=== PATIENT | female | born 1990 | race Caucasian/White ===

== ENCOUNTER 2017-10-22 17:16 | Emergency (ER) | payer MEDICAID ==
[2017-10-22] MEDS ORDERED: IBUPROFEN 400 MG TABLET PO ONE (18:35)
--- NOTE | 2017-10-22 18:40 | Emergency Department Record ---
History of Present Illness - General Chief complaint: Extremity Problem Stated complaint: L ANKLE INJURY Time Seen by Provider: 10/22/17 18:35 Source: Patient Mode of Arrival: Ambulatory Limitations: No limitations - History of Present Illness Initial comments: 26 yo female presents to ED for evaluation of a foot injury that occurred approximately 2.5 hours ago. Patient reports that she "slipped a banana" at home resulting in injury. Patient denies injury proximal to the foot, denies other injury on examination. Patient denies health problems at her baseline. MD Complaint: Extremity pain Onset/Timin -: Hour(s) Location: Left, Foot History of Same: No Severity scale (1-10): 5 Quality: Aching Consistency: Constant Worsens with: Walking, Weight bearing Associated Symptoms: Denies other symptoms - Related Data Allergies Allergy/AdvReac Type Severity Reaction Status Date / Time amoxicillin trihydrate AdvReac DIARRHEA Verified 10/22/17 18:36 [From Augmentin] potassium clavulanate AdvReac DIARRHEA Verified 10/22/17 18:36 [From Augmentin] Travel Screening - Travel/Exposure Within Last 30 Days Have you traveled within the last 30 days?: No - Travel/Exposure Within Last Year Have you traveled outside the [place] in the last year?: No - Additonal Travel Details Have you been exposed to anyone with a communicable illness?: No - Travel Symptoms Symptom Screening: None Review of Systems Constitutional: Denies: Chills, Fever, Malaise, Night sweats Eyes: Denies: Eye discharge, Eye pain ENT: Denies: Congestion, Ear pain, Epistaxis Respiratory: Denies: Cough, Dyspnea Cardiovascular: Denies: Chest pain, Dyspnea on exertion Endocrine: Denies: Fatigue, Heat or cold intolerance Gastrointestinal: Denies: Abdominal pain, Nausea, Vomiting Genitourinary: Denies: Incontinence, Retention Musculoskeletal: Reports: Arthralgia. Denies: Back pain, Gout, Joint swelling Skin: Denies: Bruising, Change in color Neurological: Denies: Abnormal gait, Confusion, Headache, Tingling Psychiatric: Denies: Anxiety Hematological/Lymphatic: Denies: Anemia, Blood Clots Past Medical History - SOCIAL HISTORY Smoking Status: Never smoker Alcohol Use: None Drug Use: None - RESPIRATORY Hx Respiratory Disorders: No - CARDIOVASCULAR Hx Cardio Disorders: No - NEURO Hx Neuro Disorders: No - GI Hx GI Disorders: No - Hx Genitourinary Disorders: No - ENDOCRINE Hx Endocrine Disorders: No - MUSCULOSKELETAL Hx Musculoskeletal Disorders: No - PSYCH Hx Psych Problems: Yes Hx Anxiety: Yes - HEMATOLOGY/ONCOLOGY Hx Hematology/Oncology Disorders: No Family Medical History Any Significant Family History?: Yes Physical Exam - General General Appearance: Alert, Oriented x3, Cooperative, No acute distress Limitations: No limitations - Head Head exam: Atraumatic, Normocephalic, Normal inspection Head exam detail: negative: Abrasion, Contusion, Kingsley's sign, General tenderness, Hematoma, Laceration - Eye Eye exam: Normal appearance. negative: Conjunctival injection, Periorbital swelling, Periorbital tenderness, Scleral icterus - ENT Ear exam: negative: Auricular hematoma, Auricular trauma Nasal Exam: negative: Active bleeding, Discharge, Dried blood, Foreign body Mouth exam: negative: Drooling, Laceration, Muffled voice, Tongue elevation - Neck Neck exam: Normal inspection. negative: Meningismus, Tenderness - Respiratory Respiratory exam: Normal lung sounds bilaterally. negative: Respiratory distress, Rhonchi, Stridor, Wheezes - Cardiovascular Cardiovascular Exam: Regular rate, Normal rhythm, Normal heart sounds Peripheral Pulses: 3+: Dorsalis Pedis (L) - GI/Abdominal GI/Abdominal exam: Soft. negative: Rebound, Rigid, Tenderness - Rectal Rectal exam: Deferred - exam: Deferred - Extremities Extremities exam: Tenderness (TTP along the proximal great toe and medial arch of the foot, no TTP at the ankle or proximal lower extremity (fibula), compartments of the lower extremity are soft on examination, and stron DPP is present.). negative: Calf tenderness, Pedal edema - Back Back exam: Denies: CVA tenderness (R), CVA tenderness (L) - Neurological Neurological exam: Alert, Oriented X3 - Psychiatric Psychiatric exam: Normal affect, Normal mood - Skin Skin exam: Normal color. negative: Abrasion Type of lesion: negative: abrasion Course Vital Signs 10/22/17 18:28 Temperature 98.5 F Pulse Rate 96 H Respiratory 20 Rate Blood Pressure 142/88 Pulse Ox 97 - Reevaluation(s) Reevaluation #1: 10/22/17 20:00 Left Foot: Possible fracture left sesamoid bone, no other abnormality identified. Patient was updated on her radiology results, will administer crutches with instructions for follow-up with her PCP and symptomatic treatment as directed. Disposition Disposition: Discharge Clinical Impression: Fracture of sesamoid bone of foot, closed Qualifiers: Encounter type: initial encounter Laterality: left Qualified Code(s): S92.812A - Other fracture of left foot, initial encounter for closed fracture Disposition: Home, Self-Care Condition: (2) Stable Instructions: Foot Fracture in Adults (ED) Additional Instructions: Return to ED if your symptoms worsen or if you have any concerns. Ibuprofen as needed for pain, ice as needed for swelling. Follow-up with your family doctor in 3-5 days as directed. Forms: Patient Portal Access Time of Disposition: 20:01 Quality - Quality Measures Quality Measures: N/A - Blood Pressure Screening Does Patient Have Any of the Following: No Blood Pressure Classification: Pre-Hypertensive BP Reading Systolic Measurement: 142 Diastolic Measurement: 88 Screening for High Blood Pressure: < Pre-Hypertensive BP, F/U Documented > [ G8950] Pre-Hypertensive Follow-up Interventions: Referral to alternative/primary care provider.
--- NOTE | 2017-10-23 11:04 | RADIOLOGY REPORT ---
EXAM: LEFT FOOT HISTORY: TWISTED FOOT WITH PAIN LATERALLY. TECHNIQUE: Four views of the left foot were obtained. Comparison: None. Encounter: Initial. FINDINGS: There is a moderate sized plantar calcaneal spur. There is a sesamoid bone at the level of the IP joint of the great toe with a cleft in the middle of this. This may just be developmental although an actual fractured sesamoid could not be excluded with this appearance and correlation with point tenderness suggested. Elsewhere the left foot appears essentially negative. IMPRESSION: 1. PLANTAR CALCANEAL SPUR. 2. CLEFT IN THE SESAMOID BONE AT THE LEVEL OF THE IP JOINT OF THE GREAT TOE, NONSPECIFIC DESCRIBED ABOVE. JOB NUMBER: [id number] MTDD
== END 2017-10-22 20:24 | disposition home or self-care (01) ==
LOC: ER 17:16
DX: S92.812A Other fracture of left foot, initial encounter for closed fracture (principal); W01.10XA Fall on same level from slipping, tripping and stumbling with subsequent striking against unspecified object, initial encounter; Y92.009 Unspecified place in unspecified non-institutional (private) residence as the place of occurrence of the external cause
CPT/HCPCS: 99283

== ENCOUNTER 2018-03-25 04:26 | Emergency (ER) | payer MEDICAID, OTHER ==
[2018-03-25] MEDS ORDERED: 0.9 % SODIUM CHLORIDE 1000ML 1,000 ML IV ONE (04:41)
[2018-03-25] MEDS ORDERED: ONDANSETRON HCL IV 4 MG/2 ML VIAL IVP ONE (04:41)
--- NOTE | 2018-03-25 04:46 | Emergency Department Record ---
History of Present Illness - General Chief complaint: Flank Pain Stated complaint: BACK PAIN-THINKS SHE HAS A KIDNEY STONE Time Seen by Provider: 03/25/18 04:46 Source: Patient Mode of Arrival: Ambulatory Limitations: No limitations - History of Present Illness Initial comments: sudden onset r flank pain that wraps around abdomen Complaint: Other Onset/Timin -: Hour(s) Radiation: R flank Severity scale (1-10): 7 Quality: Cramping Consistency: Intermittent Improves with: None Associated Symptoms: Nausea/vomiting - Related Data Allergies Allergy/AdvReac Type Severity Reaction Status Date / Time amoxicillin trihydrate AdvReac DIARRHEA Verified 10/22/17 18:36 [From Augmentin] potassium clavulanate AdvReac DIARRHEA Verified 10/22/17 18:36 [From Augmentin] Travel Screening - Travel/Exposure Within Last 30 Days Have you traveled within the last 30 days?: No - Travel Symptoms Symptom Screening: None Review of Systems Reviewed: No additional complaints except as noted below Constitutional: Reports: As per HPI. Denies: Chills, Fever, Malaise, Night sweats, Weakness, Weight change Eyes: Reports: As per HPI. Denies: Eye discharge, Eye pain, Photophobia, Vision change ENT: Reports: As per HPI. Denies: Congestion, Dental pain, Ear pain, Epistaxis , Hearing loss, Throat pain Respiratory: Reports: As per HPI. Denies: Cough, Dyspnea, Hemoptysis, Stridor, Wheezes Cardiovascular: Reports: As per HPI. Denies: Arrhythmia, Chest pain, Dyspnea on exertion, Edema, Murmurs, Orthopnea, Palpitations, Paroxysmal nocturnal dyspnea, Rheumatic Fever, Syncope Endocrine: Reports: As per HPI. Denies: Fatigue, Heat or cold intolerance, Polydipsia, Polyuria Gastrointestinal: Reports: As per HPI. Denies: Abdominal pain, Constipation, Diarrhea, Hematemesis, Hematochezia, Melena, Nausea, Vomiting Genitourinary: Reports: As per HPI. Denies: Abnormal menses, Discharge, Dyspareunia, Dysuria, Frequency, Hematuria, Incontinence, Retention, Urgency Musculoskeletal: Reports: As per HPI. Denies: Arthralgia, Back pain, Gout, Joint swelling, Myalgia, Neck pain Skin: Reports: As per HPI. Denies: Bruising, Change in color, Change in hair/ nails, Lesions, Pruritus, Rash Neurological: Reports: As per HPI. Denies: Abnormal gait, Confusion, Headache, Numbness, Paresthesias, Seizure, Tingling, Tremors, Vertigo, Weakness Psychiatric: Reports: As per HPI. Denies: Anxiety, Auditory hallucinations, Depression, Homicidal thoughts, Suicidal thoughts, Visual hallucinations Hematological/Lymphatic: Reports: As per HPI. Denies: Anemia, Blood Clots, Easy bleeding, Easy bruising, Swollen glands Past Medical History - SOCIAL HISTORY Smoking Status: Never smoker - RESPIRATORY Hx Respiratory Disorders: No - CARDIOVASCULAR Hx Cardio Disorders: No - NEURO Hx Neuro Disorders: No - GI Hx GI Disorders: No - Hx Genitourinary Disorders: Yes Hx Kidney Stones: Yes (3 yrs ago) - ENDOCRINE Hx Endocrine Disorders: No - MUSCULOSKELETAL Hx Musculoskeletal Disorders: No - PSYCH Hx Psych Problems: Yes Hx Anxiety: Yes - HEMATOLOGY/ONCOLOGY Hx Hematology/Oncology Disorders: No Family Medical History Any Significant Family History?: Yes Hx Cancer: Grandparents Physical Exam - General General Appearance: Alert, Oriented x3, Cooperative, Mild distress - Head Head exam: Normal inspection - Eye Eye exam: Normal appearance, PERRL, EOMI Pupils: Normal accommodation - ENT ENT exam: Normal exam, Mucous membranes moist, Normal external ear exam, Normal orophraynx Ear exam: Normal external inspection. negative: External canal tenderness Nasal Exam: Normal inspection. negative: Discharge, Sinus tenderness Mouth exam: Normal external inspection, Tongue normal Teeth exam: Normal inspection. negative: Dental caries Throat exam: Normal inspection. negative: Tonsillar erythema, Tonsillar exudate - Neck Neck exam: Normal inspection, Full ROM. negative: Tenderness - Respiratory Respiratory exam: Normal lung sounds bilaterally. negative: Respiratory distress - Cardiovascular Cardiovascular Exam: Normal rhythm, Normal heart sounds, Tachycardia - GI/Abdominal GI/Abdominal exam: Soft, Normal bowel sounds, Tenderness - Rectal Rectal exam: Deferred - exam: Deferred - Extremities Extremities exam: Normal inspection, Full ROM, Normal capillary refill. negative: Tenderness - Back Back exam: Reports: CVA tenderness (R), Full ROM. Denies: Muscle spasm, Rash noted, Tenderness - Neurological Neurological exam: Alert, CN II-XII intact, Normal gait, Oriented X3 - Psychiatric Psychiatric exam: Normal affect, Normal mood - Skin Skin exam: Dry, Intact, Normal color, Warm Course Vital Signs 03/25/18 04:36 Temperature 97.8 F Pulse Rate [ 101 H Pulse Ox Probe] Respiratory 24 Rate Blood Pressure 147/111 [Left Arm] Pulse Ox 100 - Reevaluation(s) Reevaluation #1: 03/25/18 06:13 pts pain is somewhat better Medical Decision Making - Lab Data Result diagrams: 03/25/18 04:39 03/25/18 04:39 Disposition Disposition: Discharge Clinical Impression: Right sided abdominal pain Disposition: Home, Self-Care Condition: (1) Good Instructions: Acute Abdominal Pain (ED) Additional Instructions: recheck in 12-24hrs if having right lower quadrant pain. return sooner if worse. Forms: Patient Portal Access, Return to Work/School Quality - Quality Measures Quality Measures: N/A - Blood Pressure Screening Does Patient Have Any of the Following: No Blood Pressure Classification: Pre-Hypertensive BP Reading Systolic Measurement: 130 Diastolic Measurement: 53 Screening for High Blood Pressure: < Pre-Hypertensive BP, F/U Documented > [ G8950] Pre-Hypertensive Follow-up Interventions: Follow-up with rescreen every year.
[2018-03-25 04:48] LABS: URINE APPEARANCE CLEAR; URINE BILIRUBIN NEGATIVE (NEGATIVE); URINE BLOOD TRACE-I (NEGATIVE); URINE COLOR YELLOW; URINE GLUCOSE (UA) NEGATIVE (NEGATIVE); URINE KETONE NEGATIVE (NEGATIVE); URINE LEUKOCYTE ESTERASE LARGE (NEGATIVE); URINE NITRITE NEGATIVE (NEGATIVE); URINE PROTEIN NEGATIVE (NEGATIVE); URINE UROBILINOGEN 0.2 E.U./dL (0.20 - 1.00)
[2018-03-25] MEDS ORDERED: KETOROLAC 30 MG/ML VIAL IVP ONE (04:50)
[2018-03-25] MEDS ORDERED: 0.9 % SODIUM CHLORIDE 1,000 ML BAG IV ONE (04:50)
[2018-03-25 04:54] LABS: URINE RBC 0 - 2 (NONE SEEN)
[2018-03-25 04:55] LABS: HCG,QUALITATIVE URINE NEGATIVE (NEGATIVE); URINE AMORPHOUS SEDIMENT 1+; URINE BACTERIA FEW; URINE EPITHELIAL CELLS 21 - 35 (FEW); URINE WBC 0 - 2 (0-2/hpf)
[2018-03-25 05:00] LABS: BASO % 0.2 % (0-6); EOS % 0.8 % (0-6); GRAN % 59.2 % (47-80); HEMATOCRIT 43.6 % (35.0-47.0); HEMOGLOBIN 14.1 gm/dl (11.6-16.0); LYMPH % 32.9 % (16-45); MEAN CELL VOLUME 81.3 fl (81-97); MEAN CORPUSCULAR HEMOGLOBIN 26.3 pg (27-33); MEAN CORPUSCULAR HGB CONC 32.3 g/dl (32-36); MEAN PLATELET VOLUME 9.4 fl (7.4-10.4); MONO % 6.9 % (0-9); PLATELET COUNT 350 K/uL (130-400); RED BLOOD COUNT 5.36 M/uL (3.80-5.40); RED CELL DISTRIBUTION WIDTH 14.6 % (11.5-14.5); WHITE BLOOD COUNT W/O DIFF 11.9 K/uL (4.2-12.2)
[2018-03-25 05:12] LABS: BLOOD UREA NITROGEN 15 mg/dL (6-20); CREATININE 0.7 mg/dL (0.5-0.9); EST GLOMERULAR FILTRATION RATE > 60 mL/min
[2018-03-25 05:13] LABS: TOTAL PROTEIN 7.1 g/dL (6.6-8.7)
[2018-03-25 05:15] LABS: GLUCOSE,RANDOM 113 mg/dL (74-109)
[2018-03-25 05:18] LABS: ALB/GLOB RATIO 1.1 (1.1-1.8); ALBUMIN 3.7 g/dL (4.0-5.0); ALKALINE PHOSPHATASE 83 U/L (35-104); ALT/SGPT 12 U/L (<33); AST/SGOT 13 U/L (10.0-35.0)
[2018-03-25] MEDS ORDERED: HYDROMORPHONE HCL 2 MG/ML VIAL IVP ONE (06:12)
--- NOTE | 2018-03-27 12:43 | CT SCAN REPORT ---
EXAM: CT SCAN ABDOMEN/PELVIS WO CONTRAST HISTORY: RIGHT FLANK PAIN, HISTORY OF KIDNEY STONES. TECHNIQUE: Axial CT scan of the abdomen and pelvis performed without oral or IV contrast. Preliminary report provided by [facility]. COMPARISON: None. FINDINGS: No calcified gallstones are seen within the gallbladder. No intrarenal calculi seen on either side. No hydronephrosis or hydroureter seen on either side. No definite ureteral calculus seen on either side and no bladder calculus evident. Evaluation of the bowel and viscera is considerably limited without oral or IV contrast. Given this limitation, no definite hepatic, splenic, adrenal, pancreatic, or renal mass identified. Appendix visualized and is of normal caliber with no appendicitis evident. There is probably a very small amount of free fluid in the pelvis particularly just anterior to the uterine fundus. This may simply be physiologic in nature. The lung bases appear clear. No free intraperitoneal air identified. IMPRESSION: 1. NO DEFINITE URINARY TRACT CALCULI OR HYDRONEPHROSIS IDENTIFIED. 2. THERE APPEARS TO BE A SMALL AMOUNT OF FREE FLUID IN THE PELVIS, WHICH MAY SIMPLY BE PHYSIOLOGIC. NO FREE AIR EVIDENT. APPENDIX NEGATIVE. JOB NUMBER: [id number] [facility]
== END 2018-03-25 06:50 | disposition home or self-care (01) ==
LOC: ER 04:26
DX: R10.31 Right lower quadrant pain (principal); R11.2 Nausea with vomiting, unspecified
CPT/HCPCS: 99284 ×2; 96374; 96375; 96361; 85025; 80053; 81001; 81025; 74176; J1885; J2405; J1170; J7030

== ENCOUNTER 2019-05-27 12:43 | Emergency (ER) | payer OTHER ==
[2019-05-27] MEDS ORDERED: 0.9 % SODIUM CHLORIDE 1,000 ML BAG IV ONE (13:20)
[2019-05-27] MEDS ORDERED: ONDANSETRON HCL IV 4 MG/2 ML VIAL IVP ONE (13:20)
[2019-05-27] MEDS ORDERED: HYDROMORPHONE HCL 2 MG/ML VIAL IVP ONE (13:20)
--- NOTE | 2019-05-27 13:20 | Emergency Department Record ---
History of Present Illness - General Chief complaint: Rectal bleeding Stated complaint: hemerroids,bleeding Time Seen by Provider: 05/27/19 13:01 Source: Patient Mode of Arrival: Ambulatory Limitations: No limitations - History of Present Illness Initial comments: pt has pain in her rectal area. she thinks its a thrombosed hemorrhoid. it has been hurting for days. she went to urgent care and was told it was cellulitis and was started on bactrim which she stopped taking because she forgot. her pushed on it and released alot of drainage and it felt much better but now it hurts again. Onset/Timin -: Week(s) Radiation: Other Severity scale (1-10): 5 Quality: Sharp Consistency: Constant Improves with: Rest Worsens with: Movement, Other Associated Symptoms: Denies other symptoms - Related Data Home Medications Medication Instructions Recorded Confirmed Last Taken Sulfamethoxazole/Trimethoprim 800 mg PO BID 05/27/19 05/27/19 Unknown [Sulfamethoxazole-Tmp Ds Tablet] Previous Rx's Medication Instructions Recorded Clindamycin HCl [Cleocin HCl] 150 mg PO Q6H #40 cap 05/27/19 Clindamycin HCl [Cleocin HCl] 300 mg PO Q6HR #40 capsule 05/27/19 Hydrocodone/APAP 5/325Mg [[place] 1 each PO Q6H #7 tab 05/27/19 5Mg/325Mg] Allergies Allergy/AdvReac Type Severity Reaction Status Date / Time amoxicillin trihydrate AdvReac DIARRHEA Verified 10/22/17 18:36 [From Augmentin] potassium clavulanate AdvReac DIARRHEA Verified 10/22/17 18:36 [From Augmentin] Travel Screening - Travel/Exposure Within Last 30 Days Have you traveled within the last 30 days?: No Review of Systems Reviewed: No additional complaints except as noted below Constitutional: Reports: As per HPI. Denies: Chills, Fever, Malaise, Night sweats, Weakness, Weight change Eyes: Reports: As per HPI. Denies: Eye discharge, Eye pain, Photophobia, Vision change ENT: Reports: As per HPI. Denies: Congestion, Dental pain, Ear pain, Epistaxis, Hearing loss, Throat pain Respiratory: Reports: As per HPI. Denies: Cough, Dyspnea, Hemoptysis, Stridor, Wheezes Cardiovascular: Reports: As per HPI. Denies: Arrhythmia, Chest pain, Dyspnea on exertion, Edema, Murmurs, Orthopnea, Palpitations, Paroxysmal nocturnal dyspnea, Rheumatic Fever, Syncope Endocrine: Reports: As per HPI. Denies: Fatigue, Heat or cold intolerance, Polydipsia, Polyuria Gastrointestinal: Reports: As per HPI. Denies: Abdominal pain, Constipation, Diarrhea, Hematemesis, Hematochezia, Melena, Nausea, Vomiting Genitourinary: Reports: As per HPI. Denies: Abnormal menses, Discharge, Dyspareunia, Dysuria, Frequency, Hematuria, Incontinence, Retention, Urgency Musculoskeletal: Reports: As per HPI. Denies: Arthralgia, Back pain, Gout, Joint swelling, Myalgia, Neck pain Skin: Reports: As per HPI. Denies: Bruising, Change in color, Change in hair/nails, Lesions, Pruritus, Rash Neurological: Reports: As per HPI. Denies: Abnormal gait, Confusion, Headache, Numbness, Paresthesias, Seizure, Tingling, Tremors, Vertigo, Weakness Psychiatric: Reports: As per HPI. Denies: Anxiety, Auditory hallucinations, Depression, Homicidal thoughts, Suicidal thoughts, Visual hallucinations Hematological/Lymphatic: Reports: As per HPI. Denies: Anemia, Blood Clots, Easy bleeding, Easy bruising, Swollen glands Past Medical History - SOCIAL HISTORY Smoking Status: Never smoker - RESPIRATORY Hx Respiratory Disorders: No - CARDIOVASCULAR Hx Cardio Disorders: No - NEURO Hx Neuro Disorders: No - GI Hx GI Disorders: No - Hx Genitourinary Disorders: Yes Hx Kidney Stones: Yes (3 yrs ago) - ENDOCRINE Hx Endocrine Disorders: No - MUSCULOSKELETAL Hx Musculoskeletal Disorders: No - PSYCH Hx Psych Problems: Yes Hx Anxiety: Yes - HEMATOLOGY/ONCOLOGY Hx Hematology/Oncology Disorders: No Family Medical History Any Significant Family History?: Yes Hx Cancer: Grandparents Physical Exam - General General Appearance: Alert, Oriented x3, Cooperative, Mild distress - Head Head exam: Normal inspection - Eye Eye exam: Normal appearance, PERRL, EOMI Pupils: Normal accommodation - ENT ENT exam: Normal exam, Mucous membranes moist, Normal external ear exam, Normal orophraynx, TM's normal bilaterally Ear exam: Normal external inspection. negative: External canal tenderness Nasal Exam: Normal inspection. negative: Discharge, Sinus tenderness Mouth exam: Normal external inspection, Tongue normal Teeth exam: Normal inspection. negative: Dental caries Throat exam: Normal inspection. negative: Tonsillar erythema, Tonsillar exudate - Neck Neck exam: Normal inspection, Full ROM. negative: Tenderness - Respiratory Respiratory exam: Normal lung sounds bilaterally. negative: Respiratory distress - Cardiovascular Cardiovascular Exam: Normal rhythm, Normal heart sounds, Tachycardia - GI/Abdominal GI/Abdominal exam: Soft, Normal bowel sounds. negative: Tenderness - Rectal Rectal exam: Tenderness - exam: Deferred - Extremities Extremities exam: Normal inspection, Full ROM, Normal capillary refill. negative: Tenderness - Back Back exam: Reports: Normal inspection, Full ROM. Denies: Muscle spasm, Rash noted, Tenderness - Neurological Neurological exam: Alert, CN II-XII intact, Normal gait, Oriented X3 - Psychiatric Psychiatric exam: Normal affect, Normal mood - Skin Skin exam: Dry, Intact, Normal color, Warm Course Vital Signs 05/27/19 12:50 Temperature 98.1 F Pulse Rate 127 H Respiratory 20 Rate Blood Pressure 156/96 Pulse Ox 98 - Reevaluation(s) Reevaluation #1: 05/27/19 17:44 ct shows perirectal abscess 3.5/1.5x1.5. d/w dr bell who will open in his office tomorrow Reevaluation #2: 05/27/19 18:06 pt was prepared for discharge when she c/o her l leg. it has swelling and erythema so a doppler is being done Reevaluation #3: 05/27/19 18:26 doppler was neg Medical Decision Making - Lab Data Result diagrams: 05/27/19 13:50 05/27/19 13:50 Disposition Disposition: Discharge Clinical Impression: Perianal abscess Cellulitis Qualifiers: Site of cellulitis: extremity Site of cellulitis of extremity: lower extremity Laterality: left Qualified Code(s): L03.116 - Cellulitis of left lower limb Disposition: Home, Self-Care Condition: (1) Good Instructions: Rectal Abscess (ED) Additional Instructions: follow up with dr bell tomorrow. return sooner if worse warm baths Prescriptions: Clindamycin HCl [Cleocin HCl] 300 mg PO Q6HR #40 capsule Clindamycin HCl [Cleocin HCl] 150 mg PO Q6H #40 cap Hydrocodone/APAP 5/325Mg [[place] 5Mg/325Mg] 1 each PO Q6H #7 tab Forms: Patient Portal Access Quality - Quality Measures Quality Measures: N/A - Blood Pressure Screening Does Patient Have Any of the Following: No Blood Pressure Classification: Hypertensive Reading Systolic Measurement: 156 Diastolic Measurement: 96 Screening for High Blood Pressure: < First Hypertensive BP, F/U Documented > [G8950] First Hypertensive Follow-up Interventions: Follow-up with rescreen GT 1 day and LT 4 weeks.
[2019-05-27 13:35] LABS: URINE APPEARANCE CLEAR; URINE BILIRUBIN NEGATIVE (NEGATIVE); URINE BLOOD NEGATIVE (NEGATIVE); URINE COLOR YELLOW; URINE GLUCOSE (UA) NEGATIVE (NEGATIVE); URINE KETONE NEGATIVE (NEGATIVE); URINE LEUKOCYTE ESTERASE SMALL (NEGATIVE); URINE NITRITE NEGATIVE (NEGATIVE); URINE PROTEIN NEGATIVE (NEGATIVE); URINE UROBILINOGEN 0.2 E.U./dL (0.20 - 1.00)
[2019-05-27 14:01] LABS: ABSOLUTE NEUTROPHIL COUNT 7.64; BASO % 0.2 % (0-6); EOS % 0.6 % (0-6); GRAN % 69.4 % (47-80); HEMATOCRIT 40.9 % (35.0-47.0); HEMOGLOBIN 12.9 gm/dl (11.6-16.0); LYMPH % 23.3 % (16-45); MEAN CELL VOLUME 82.8 fl (81-97); MEAN CORPUSCULAR HEMOGLOBIN 26.1 pg (27-33); MEAN CORPUSCULAR HGB CONC 31.5 g/dl (32-36); MEAN PLATELET VOLUME 9.3 fl (7.4-10.4); MONO % 6.5 % (0-9); PLATELET COUNT 305 K/uL (130-400); RED BLOOD COUNT 4.94 M/uL (3.80-5.40); RED CELL DISTRIBUTION WIDTH 14.2 % (11.5-14.5)
[2019-05-27 14:04] LABS: URINE BACTERIA 1+; URINE RBC 0 - 2 (NONE SEEN)
[2019-05-27 14:09] LABS: BLOOD UREA NITROGEN 9 mg/dL (6-20)
[2019-05-27 14:10] LABS: CREATININE 0.6 mg/dL (0.5-0.9); EST GLOMERULAR FILTRATION RATE > 60 mL/min
[2019-05-27 14:12] LABS: GLUCOSE,RANDOM 109 mg/dL (74-109)
[2019-05-27 14:47] LABS: HCG,QUALITATIVE URINE NEGATIVE (NEGATIVE)
[2019-05-27] MEDS ORDERED: CLINDAMYCIN 600MG/50ML PREMIX 600 MG/50 ML BAG IVPB ONE (17:26)
[2019-05-27] MEDS ORDERED: KETOROLAC 30 MG/ML VIAL IVP ONE (17:27)
--- NOTE | 2019-05-27 18:37 | Emergency Department Record ---
History of Present Illness - General Chief complaint: Rectal bleeding Stated complaint: hemerroids,bleeding Time Seen by Provider: 05/27/19 13:01 Source: Patient Mode of Arrival: Ambulatory Limitations: No limitations - History of Present Illness Onset/Timin -: Week(s) Radiation: Other Severity scale (1-10): 5 Quality: Sharp Consistency: Constant Improves with: Rest Worsens with: Movement, Other Associated Symptoms: Denies other symptoms - Related Data Home Medications Medication Instructions Recorded Confirmed Last Taken Sulfamethoxazole/Trimethoprim 800 mg PO BID 05/27/19 05/27/19 Unknown [Sulfamethoxazole-Tmp Ds Tablet] Previous Rx's Medication Instructions Recorded Clindamycin HCl [Cleocin HCl] 150 mg PO Q6H #40 cap 05/27/19 Clindamycin HCl [Cleocin HCl] 300 mg PO Q6HR #40 capsule 05/27/19 Hydrocodone/APAP 5/325Mg [[place] 1 each PO Q6H #7 tab 05/27/19 5Mg/325Mg] Allergies Allergy/AdvReac Type Severity Reaction Status Date / Time amoxicillin trihydrate AdvReac DIARRHEA Verified 10/22/17 18:36 [From Augmentin] potassium clavulanate AdvReac DIARRHEA Verified 10/22/17 18:36 [From Augmentin] Travel Screening - Travel/Exposure Within Last 30 Days Have you traveled within the last 30 days?: No Review of Systems Constitutional: Reports: As per HPI. Denies: Chills, Fever, Malaise, Night sweats, Weakness, Weight change Eyes: Reports: As per HPI. Denies: Eye discharge, Eye pain, Photophobia, Vision change ENT: Reports: As per HPI. Denies: Congestion, Dental pain, Ear pain, Epistaxis, Hearing loss, Throat pain Respiratory: Reports: As per HPI. Denies: Cough, Dyspnea, Hemoptysis, Stridor, Wheezes Cardiovascular: Reports: As per HPI. Denies: Arrhythmia, Chest pain, Dyspnea on exertion, Edema, Murmurs, Orthopnea, Palpitations, Paroxysmal nocturnal dyspnea, Rheumatic Fever, Syncope Endocrine: Reports: As per HPI. Denies: Fatigue, Heat or cold intolerance, Polydipsia, Polyuria Gastrointestinal: Reports: As per HPI. Denies: Abdominal pain, Constipation, Diarrhea, Hematemesis, Hematochezia, Melena, Nausea, Vomiting Genitourinary: Reports: As per HPI. Denies: Abnormal menses, Discharge, Dyspar eunia, Dysuria, Frequency, Hematuria, Incontinence, Retention, Urgency Musculoskeletal: Reports: As per HPI. Denies: Arthralgia, Back pain, Gout, Joint swelling, Myalgia, Neck pain Skin: Reports: As per HPI. Denies: Bruising, Change in color, Change in hair/nails, Lesions, Pruritus, Rash Neurological: Reports: As per HPI. Denies: Abnormal gait, Confusion, Headache, Numbness, Paresthesias, Seizure, Tingling, Tremors, Vertigo, Weakness Psychiatric: Reports: As per HPI. Denies: Anxiety, Auditory hallucinations, Depression, Homicidal thoughts, Suicidal thoughts, Visual hallucinations Hematological/Lymphatic: Reports: As per HPI. Denies: Anemia, Blood Clots, Easy bleeding, Easy bruising, Swollen glands Past Medical History - SOCIAL HISTORY Smoking Status: Never smoker - RESPIRATORY Hx Respiratory Disorders: No - CARDIOVASCULAR Hx Cardio Disorders: No - NEURO Hx Neuro Disorders: No - GI Hx GI Disorders: No - Hx Genitourinary Disorders: Yes Hx Kidney Stones: Yes (3 yrs ago) - ENDOCRINE Hx Endocrine Disorders: No - MUSCULOSKELETAL Hx Musculoskeletal Disorders: No - PSYCH Hx Psych Problems: Yes Hx Anxiety: Yes - HEMATOLOGY/ONCOLOGY Hx Hematology/Oncology Disorders: No Family Medical History Any Significant Family History?: Yes Hx Cancer: Grandparents Physical Exam - General Limitations: No limitations Course Vital Signs 05/27/19 05/27/19 12:50 15:46 Temperature 98.1 F 98.4 F Pulse Rate 127 H Pulse Rate [ 91 H Pulse Ox Probe] Respiratory 20 20 Rate Blood Pressure 156/96 Blood Pressure 107/69 [Right Arm] Pulse Ox 98 97 Medical Decision Making - Lab Data Result diagrams: 05/27/19 13:50 05/27/19 13:50 Lab Results 05/27/19 05/27/19 05/27/19 Range/Units 13:32 13:50 13:50 WBC 11.0 (4.2-12.2) K/uL RBC 4.94 (3.80-5.40) M/uL Hgb 12.9 (11.6-16.0) gm/dl Hct 40.9 (35.0-47.0) % MCV 82.8 (81-97) fl MCH 26.1 L (27-33) pg MCHC 31.5 L (32-36) g/dl RDW 14.2 (11.5-14.5) % Plt Count 305 (130-400) K/uL MPV 9.3 (7.4-10.4) fl Gran % 69.4 (47-80) % Lymphocytes % 23.3 (16-45) % Monocytes % 6.5 (0-9) % Eosinophils % 0.6 (0-6) % Basophils % 0.2 (0-6) % Absolute Neutrophils 7.64 Sodium 140 (136-145) mmol/L Potassium 3.9 (3.4-4.5) mmol/L Chloride 104 (98-107) mmol/L Carbon Dioxide 25.0 (22-29) mmol/L Anion Gap 11.0 (7-16) BUN 9 (6-20) mg/dL Creatinine 0.6 (0.5-0.9) mg/dL Estimated GFR > 60 mL/min Random Glucose 109 (74-109) mg/dL Calcium 9.0 (8.6-10.0) mg/dL Urine Color Yellow Urine Appearance Clear Urine pH 7.0 (5.0-8.0) Ur Specific [place] 1.015 (1.002-1.030) Urine Protein Negative (NEGATIVE) Urine Glucose (UA) Negative (NEGATIVE) Urine Ketones Negative (NEGATIVE) Urine Blood Negative (NEGATIVE) Urine Nitrite Negative (NEGATIVE) Urine Bilirubin Negative (NEGATIVE) Urine Urobilinogen 0.2 (0.20 - 1.00) E.U./dL Ur Leukocyte Esterase Small H (NEGATIVE) Urine RBC 0 - 2 (NONE SEEN) Urine WBC 3 - 5 (0-2/hpf) Ur Epithelial Cells 7 - 10 (FEW) Urine Bacteria 1+ Urine HCG, Qual Negative (NEGATIVE) Disposition Disposition: Discharge Clinical Impression: Perianal abscess Cellulitis Qualifiers: Site of cellulitis: extremity Site of cellulitis of extremity: lower extremity Laterality: left Qualified Code(s): L03.116 - Cellulitis of left lower limb Disposition: Home, Self-Care Condition: (1) Good Instructions: Rectal Abscess (ED) Additional Instructions: follow up with dr coello tomorrow. call his office at 7am return sooner if worse warm baths Prescriptions: Clindamycin HCl [Cleocin HCl] 300 mg PO Q6HR #40 capsule Clindamycin HCl [Cleocin HCl] 150 mg PO Q6H #40 cap Hydrocodone/APAP 5/325Mg [[place] 5Mg/325Mg] 1 each PO Q6H #7 tab Referrals: Jerry Coello [DOCTOR OF OSTEOPATH] - Forms: Patient Portal Access Quality - Quality Measures Quality Measures: N/A - Blood Pressure Screening Does Patient Have Any of the Following: No Blood Pressure Classification: Hypertensive Reading Systolic Measurement: 156 Diastolic Measurement: 96 Screening for High Blood Pressure: < First Hypertensive BP, F/U Documented > [G8950] First Hypertensive Follow-up Interventions: Follow-up with rescreen GT 1 day and LT 4 weeks.
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
--- NOTE | 2019-05-29 13:34 | CT SCAN REPORT ---
EXAM: CT OF THE PELVIS WITH CONTRAST HISTORY: LEFT BUTTOCK PAIN WITH POSSIBLE ABSCESS. TECHNIQUE: Standard CT imaging of the pelvis was obtained following intravenous administration of contrast. Comparison: Noncontrast CT 03/25/18. FINDINGS: There is a rim enhancing fluid collection with a few tiny foci of gas in the left posterior perianal region measuring 3.5 x 1.5 x 1.5 cm with surrounding edema in the subcutaneous tissues. This is consistent with a perianal abscess. The ischiorectal fossa fat is preserved. The rectum and visualized bowel is unremarkable. No free fluid or adenopathy in the pelvis. The bones are unremarkable. IMPRESSION: 3.5 CM LEFT PERIANAL ABSCESS. JOB NUMBER: [id number] [facility]
== END 2019-05-27 18:44 | disposition home or self-care (01) ==
LOC: ER 12:43
DX: K61.0 Anal abscess (principal); L03.116 Cellulitis of left lower limb; M79.662 Pain in left lower leg
CPT/HCPCS: 72193; 80048; 81001; 81025; 85025; 96374; 96375; 99284; J1885; J2405; J7030